=== PATIENT | male | born 1990 | race Caucasian/White ===

== ENCOUNTER 2024-07-13 19:32 | Emergency (ER) | payer OTHER, SELFPAY ==
[2024-07-13 19:37] VITALS: BP 143/96; PULSE 89; RESP 14; TEMP 36.8; O2SAT 100; BMI 26.6
--- NOTE | 2024-07-13 19:40 | ED_ITS ---
HPI - Overdose General Chief Complaint: Toxicology Problem Stated Complaint: OD Fentanyl Time Seen by Provider: 07/13/24 19:39 Source: patient, EMS, RN notes reviewed and old records reviewed Mode of arrival: EMS Limitations: no limitations History of Present Illness HPI Narrative: 36-year-old male history of methamphetamine and fentanyl use who presents with accidental overdose. Patient was at the [facility] states he was just trying to get high received 2 doses of Narcan most recently at 7:00 p.m. patient had improvement in mentation and arrived via EMS. Patient states he needs to have a bowel but denies any other symptoms currently. He denies any diaphoresis no chest pain or shortness of breath. Denies any nausea or vomiting. No issues with urination. No diarrhea. Patient states he did not intend to overdose. States he was using methamphetamine and fentanyl today. Does smoke daily, states some alcohol use but not regularly, states does use methamphetamine and fentanyl regularly. States he does have Narcan available at home. He is accompanied by his girlfriend who is at bedside. Patient's girlfriend states that this has happened in the past. Review of Systems Review of Systems ROS Unobtainable: All systems reviewed & are unremarkable except as noted in HPI and below Patient History Social History Smoking Status: Current every day smoker Exam Narrative Exam Narrative: GENERAL: Alert and oriented x three, male in mild distress. No diaphoresis. HEENT: Head normocephalic, atraumatic, EOMI, pupils reactive, face symmetric, moist mucous membranes NECK: Supple, full range of motion CARDIOVASCULAR: Regular rate and rhythm without murmurs, rubs or gallops. No JVD. No edema bilateral lower extremities. RESPIRATORY: Breath sounds equal bilaterally, no wheezes rales or rhonchi. No tachypnea or accessory muscle use. ABDOMEN: Soft, nontender. Normoactive bowel sounds all 4 quadrants. No guarding or rebound, rigidity, no mass : No CVA tenderness EXTREMITIES: Normal range of motion, no clubbing or edema. Neurovascularly intact NEUROLOGICAL: Cranial nerves II through XII grossly intact. Moving all extremities SKIN: Warm, dry, no petechiae, no rashes or lesions. Initial Vital Signs Initial Vital Signs: Vital Signs Temperature 98.3 F 07/13/24 19:37 Pulse Rate 89 07/13/24 19:37 Respiratory Rate 14 07/13/24 19:37 Blood Pressure 143/96 H 07/13/24 19:37 Pulse Oximetry 100 07/13/24 19:37 Oxygen Delivery Method Room Air 07/13/24 19:37 Course Orders Ordered: Discontinued Medications Naloxone HCl (Naloxone 4 Mg Nasal Stout) 4 mg MISC DIRECTED ONE Stop: 07/13/24 19:57 Last Admin: 07/13/24 20:13 Dose: 4 mg Documented By: SADIA Vital Signs Vital signs: Vital Signs - 8 hr 07/13/24 19:37 Temperature 98.3 F Pulse Rate 89 Respiratory Rate 14 Blood Pressure 143/96 H Pulse Oximetry 100 Oxygen Delivery Method Room Air MDM - Overdose ECG Data Attestation: I personally reviewed and interpreted this ECG as follows: Interpretation: Sinus rhythm rate of 93 LA 142 QRS of 96 QTC 452, no acute ST changes appreciated. MDM Narrative Medical decision making narrative: 37-year-old male reports accidental overdose received Narcan with improvement last dose was at 7:00 p.m.. Patient denies any other symptoms currently vitals are stable. We will continue to monitor patient continues to be asymptomatic we will discharge home with Narcan prepack. Patient does not wish to meet with social work or have any additional resources. Patient had no additional sleepiness or concerning changes and felt appropriate for discharge. Was given Narcan prepack. Naloxone at Discharge Meets criteria for naloxone at discharge?: Yes Discharge Plan Departure Patient Disposition: Home Clinical Impression: Overdose Instructions: DI for Drug Overdose in Adults, Naloxone for Opiate Overdose - [facility] Activity Restrictions/Additional Instructions: Please follow up for recheck as needed. If you decide that you would like resources you can always call to touch base with our social service liaison at [phone]. They are typically available between 11 and 7:00 p.m. most days of the week. You has been provided Narcan please share this with setting when you live with or close to so they know how to use it if necessary. Please return for any new changes in mentation, chest pain or shortness of breath, sweatiness, lightheadedness or passing out, persistent vomiting or other new or concerning changes. Stand Alone Forms: Patient Portal/API/Survey
--- NOTE | 2024-07-13 19:42 | EKG_ITS ---
[address] [address] Test Date: 2024-07-13 Pat Name: Eric Nava Department: Room: Gender: Male Contact Center Representative: NEGAR : 1990 Requested By: Order Number: [id number] Reading MD: Tyrell Olivares MD Measurements Intervals [place] Rate: 93 P: 41 VT: 142 QRS: 76 QRSD: 96 T: 52 QT: 364 QTc: 452 Interpretive Statements Normal sinus rhythm Electronically Signed On 07-14-2024 8:18:19 PST by Tyrell Olivares MD
--- NOTE | 2024-07-13 19:43 | PC.NURSE ---
[facility] [place] [facility] passed [place] after smoking fentanyl he was given 2 puffs of narcan upon arrival pt is awake but drowsy, oriented, states he just wanted to get high
[2024-07-13 19:56] VITALS: PULSE 87; RESP 16; O2SAT 100
[2024-07-13 20:02] VITALS: PULSE 86; RESP 38; O2SAT 94
[2024-07-13] MEDS: NALOXONE 4 MG NASAL SPRAY MISC (20:13)
--- NOTE | 2024-07-13 20:20 | PC.NURSE ---
Patient's girlfriend stated that she and her boyfriend needed to leave and was going to leave in 10 minutes. She was talking in a loud tone and saying that he doesn't have to stay even though the provider told the patient that he needed to stay for observation and safety. The patient was asked to leave and refused and security was called. The patient ended up leaving on her own.
[2024-07-13 20:30] VITALS: BP 126/81; PULSE 87; RESP 15; O2SAT 99
== END 2024-07-13 20:30 | disposition home or self-care (01) ==
PROVIDERS: Emergency Provider Emergency Medicine
DX: T40.411A Poisoning by fentanyl or fentanyl analogs, accidental (unintentional), initial encounter (principal)
CPT/HCPCS: 93005; 93010; 99283; A9270